=== PATIENT | male | born 1955 | race Caucasian/White ===

== ENCOUNTER 2018-06-22 09:22 | Observation (INO) ==
[2018-06-22] MEDS ORDERED: 0.9 % Sodium Chloride 1,000 ML ONE (09:47)
[2018-06-22] MEDS ORDERED: 0.9 % Sodium Chloride 1,000 ML IVC ONE (09:49)
[2018-06-22 10:03] LABS: Basophils % 0.1 %; Eosinophils # 0.2 K/mcL (0.0-0.6); Eosinophils % 2.6 %; Hemoglobin 16.1 g/dL (12.9-16.9); Immature Granulocytes % 0.3 % (0-4); Lymphocytes # 1.9 K/mcL (0.6-4.6); Lymphocytes % 23.9 %; Mean Corpuscular HGB Conc 34.3 g/dL (31.6-35.5); Mean Corpuscular Hemoglobin 31.2 pg (28.0-33.3); Mean Corpuscular Volume 91.1 fL (83.0-100.0); Mean Platelet Volume 10.1 fL (9.4-12.4); Monocytes # 0.7 K/mcL (0.0-1.3); Monocytes % 8.9 %; Platelet Count 203 K/mcL (140-400); Red Blood Count 5.16 M/mcL (4.19-5.50); Red Cell Distribution Width 12.4 % (11.5-14.5); Segmented Neutrophils % 64.2 %
--- NOTE | 2018-06-22 10:03 | Emergency Department Note ---
Disposition Clinical Impression: Atrial flutter with rapid ventricular response, New onset atrial flutter Disposition: Admitted As Inpatient Condition: Good General Adult HPI - General Chief complaint: ED Recheck/Abnormal Lab/Rx Stated complaint: sent from Dr Angeles Time Seen by Provider: 06/22/18 09:31 Source: patient Limitations: no limitations Nursing Notes Reviewed: Yes Vital Signs Reviewed: Yes - History of Present Illness HPI Narrative: Patient presents today from PCPs office where he was there for a checkup and found to have a heart rate of 160. Patient referred to the emergency department for concern for SVT. Patient states that 10 days ago he had chest pain and diaphoresis that self resolved. Patient states that he did not think much about it as a result prior to him getting to the emergency department. The patient has not had any other symptoms since then he continues planes of a "chest cold where he has had a nonproductive cough. Denies shortness of breath. Pain Scale: 0 - Related Data Home Medications Medication Instructions Recorded Confirmed Albuterol Sulfate [Ventolin Hfa] 2 puff IH Q6H PRN 06/22/18 06/22/18 Aspirin [Adult Aspirin] 81 mg PO DAILY 06/22/18 06/22/18 Budesonide/Formoterol 160/4.5 2 puff IH BIDR 06/22/18 06/22/18 [Symbicort 160/4.5] Citalopram [CeleXA] 20 mg PO DAILY 06/22/18 06/22/18 Cyclobenzaprine [Flexeril] 10 mg PO TID 06/22/18 06/22/18 Ipratropium/Albuterol Neb [Duoneb] 3 ml IH Q6HR 06/22/18 06/22/18 Lisinopril-HCTZ 10-12.5 [Prinzide 1 tab PO DAILY 06/22/18 06/22/18 10-12.5] Loratadine [Allergy Relief] 10 mg PO DAILY 06/22/18 06/22/18 Magnesium l-Lactate [Mag-Tab Sr] 84 mg PO DAILY 06/22/18 06/22/18 Multivit-Min/FA/Lycopen/Lutein [A 1 tab PO DAILY 06/22/18 06/22/18 Thru Z Select Multivit Tab] Omeprazole [PriLOSEC] 20 mg PO DAILY 06/22/18 06/22/18 RX: Metoprolol [Lopressor] 25 mg PO BID 06/22/18 06/22/18 RX: Primidone [Mysoline] 50 mg PO BID 06/22/18 06/22/18 Rosuvastatin Calcium [Crestor] 10 mg PO DAILY 06/22/18 06/22/18 Tiotropium [place] [Spiriva 2 puff IH DAILY 06/22/18 06/22/18 Respimat] Allergies Allergy/AdvReac Type Severity Reaction Status Date / Time topiramate [From Topamax] Allergy UE/LE Verified 06/22/18 09:27 swelling All systems ED: reviewed and negative except as stated. Review of Systems: As Per HPI Constitutional: Denies: fever, chills ENT ED: Reports: congestion Cardiovascular: Denies: chest pain, palpitations, dyspnea on exertion Respiratory: Denies: cough, dyspnea Gastrointestinal: Denies: abdominal pain, nausea, vomiting Genitourinary: Denies: urgency, dysuria Musculoskeletal: Denies: back pain, neck pain Integumentary: Denies: rash, abrasion Neurological: Denies: headache Psychiatric: Reports: anxiety Endocrine: Denies: fatigue Past Medical History - Past Medical History Medical history: Reports: myocardial infarction, seizures Psychiatric history: Reports: anxiety - Social History Smoking Status: Current some day smoker Smokeless Tobacco Status: No Alcohol use: Reports: none Drug use: Reports: none Physical Exam General: Well appearing, nontoxic, no acute distress Head: Normocephalic Atraumatic Eyes: PERRL, EOMI ENT: Airway patent, no stridor Neck: supple, no meningismus Chest: Lungs clear to auscultation bilateral Cardiac: Regular rhythm, tachycardic Abdomen: soft, nontender, nondistended; no guarding, rebound, or tenderness to percussion Musculoskeletal: Calves symmetric, nontender, no palpable cord Skin: No rash, normal skin tone Neuro: Awake alert and answers all questions appropriately. No focal deficit, CN 2-12 symmetric and intact - General Limitations: no limitations General appearance: alert Course Course Narrative: Patient with symptoms 10 days ago but now with asymptomatic heart rate of 160s concern for SVT. Given the QRS complex of 1338 is considered a wide-complex but less likely to be V. tach given morphology. The patient was initially reluctant to let us get an IV. He is reluctant to significant medical intervention at this time. We will try Cardizem rather than adenosine given the feelings associated with adenosine. - Reevaluation(s) Reevaluation #1: Initial Cardizem bolus given without any change in the heart rate. Patient was given adenosine both 6 with no change and then 12 with slowing of the heart rate to find atrial flutter. Patient continued on Cardizem. Once the drip was hung, repeat Cardizem bolus was ordered. Reevaluation #2: Patient's heart rate improved to 107. Atrial flutter. Patient be admitted for further workup, treatment, evaluation. Reevaluation #3: We discussed with cardiology secondary to patient's increase in heart rate after initial control. Recommends heparin drip and Lopressor if needed. - Consultations Consultation #1: Discussed with hospitalist. Patient accepted for admission. Consultation #2: Discussed with cardiology, Initial control of heart rate with relapse of heart rate to be 160s despite max dose Cardizem. Recommends anticoagulation and Lopressor. Vital Signs Temperature 97.9 F 06/22/18 09:24 Pulse Rate 163 06/22/18 09:24 Respiratory Rate 16 06/22/18 09:24 Blood Pressure 128/88 06/22/18 09:24 O2 Sat by Pulse Oximetry 97 06/22/18 09:24 Temperature 97.5 F L 06/22/18 16:29 Pulse Rate 125 06/22/18 16:29 Respiratory Rate 18 06/22/18 16:34 Blood Pressure 140/94 06/22/18 16:29 O2 Sat by Pulse Oximetry 98 06/22/18 16:34 Oxygen Delivery Oxygen Delivery Nasal Cannula Medical Decision Making - Medical Records Medical records reviewed: Yes I reviewed the patient's medical records. - Lab Data Lab results reviewed: Yes I reviewed the patient's lab results. Result diagrams: 06/22/18 09:46 06/22/18 09:46 Lab Results 06/22/18 06/22/18 06/22/18 Range/Units 09:46 09:46 09:46 WBC 7.8 (4.3-11.1) K/mcL RBC 5.16 (4.19-5.50) M/mcL Hgb 16.1 (12.9-16.9) g/dL Hct 47.0 (37.5-50.1) % MCV 91.1 (83.0-100.0) fL MCH 31.2 (28.0-33.3) pg MCHC 34.3 (31.6-35.5) g/dL RDW 12.4 (11.5-14.5) % Plt Count 203 (140-400) K/mcL MPV 10.1 (9.4-12.4) fL Immature Gran % 0.3 (0-4) % Seg Neutrophils % 64.2 % Lymphocytes % 23.9 % Monocytes % 8.9 % Eosinophils % 2.6 % Basophils % 0.1 % Neutrophils # 5.0 (1.6-8.9) K/mcL Lymphocytes # 1.9 (0.6-4.6) K/mcL Monocytes # 0.7 (0.0-1.3) K/mcL Eosinophils # 0.2 (0.0-0.6) K/mcL Basophils # 0.0 (0.0-0.2) K/mcL PT 11.4 (9.4-12.1) Seconds INR 1.0 APTT 29.2 (26.0-36.0) Seconds Sodium 141 (136-145) mEq/L Potassium 4.2 (3.5-5.1) mEq/L Chloride 106 (98-107) mEq/L Carbon Dioxide 25 (23-29) mEq/L BUN 14 (8-23) mg/dL Creatinine 1.12 (0.70-1.30) mg/dL Est GFR ( Amer) > 60 (> 60) Est GFR (Non-Af Amer) > 60 (> 60) BUN/Creatinine Ratio 13 (6-26) Glucose 150 H (70-105) mg/dL Calculated Osmolality 295 (280-300) Calcium 9.3 (8.6-10.3) mg/dL Magnesium 1.9 (1.6-2.6) mg/dL Troponin I 0.03 (< 0.04) ng/mL B-Natriuretic Peptide (Less than 100) pg/mL TSH 3.786 (0.340-5.600) mcIU/mL 06/22/18 Range/Units 09:46 WBC (4.3-11.1) K/mcL RBC (4.19-5.50) M/mcL Hgb (12.9-16.9) g/dL Hct (37.5-50.1) % MCV (83.0-100.0) fL MCH (28.0-33.3) pg MCHC (31.6-35.5) g/dL RDW (11.5-14.5) % Plt Count (140-400) K/mcL MPV (9.4-12.4) fL Immature Gran % (0-4) % Seg Neutrophils % % Lymphocytes % % Monocytes % % Eosinophils % % Basophils % % Neutrophils # (1.6-8.9) K/mcL Lymphocytes # (0.6-4.6) K/mcL Monocytes # (0.0-1.3) K/mcL Eosinophils # (0.0-0.6) K/mcL Basophils # (0.0-0.2) K/mcL PT (9.4-12.1) Seconds INR APTT (26.0-36.0) Seconds Sodium (136-145) mEq/L Potassium (3.5-5.1) mEq/L Chloride (98-107) mEq/L Carbon Dioxide (23-29) mEq/L BUN (8-23) mg/dL Creatinine (0.70-1.30) mg/dL Est GFR ( Amer) (> 60) Est GFR (Non-Af Amer) (> 60) BUN/Creatinine Ratio (6-26) Glucose (70-105) mg/dL Calculated Osmolality (280-300) Calcium (8.6-10.3) mg/dL Magnesium (1.6-2.6) mg/dL Troponin I (< 0.04) ng/mL B-Natriuretic Peptide 106 H (Less than 100) pg/mL TSH (0.340-5.600) mcIU/mL - Radiology Data Radiology results reviewed: Yes I reviewed the patient's radiology results. - EKG Data EKG #1 EKG attestation: Yes I reviewed and interpreted this EKG. EKG results narrative: EKG shows tachycardia at 160, DE 95, QRS 133, QTC [address] elevations or depressions. Most consistent with SVT. Critical Care Time Critical Care Time: Yes Total Critical Care Time: 40 Attestation: Critical care time was exclusive of separately billable procedures and treating other patients. Critical care was necessary to treat or prevent imminent or life-threatening deterioration. Critical care was time spent personally by me on the following activities: development of treatment plan with patient and/or surrogate as well as nursing, discussions with consultants, evaluation of patient's response to treatment, examination of patient, obtaining history from patient or surrogate, ordering and performing treatments and interventions, ordering and review of laboratory studies, ordering and review of radiographic studies, pulse oximetry and re-evaluation of patient's condition.
[2018-06-22] MEDS ORDERED: *HR* Adenosine 6 MG/2 ML SYRINGE IVP ONE ×2 (10:23)
[2018-06-22 10:29] LABS: Troponin I 0.03 ng/mL (< 0.04)
[2018-06-22 10:37] LABS: BUN/Creatinine Ratio 13 (6-26); Blood Urea Nitrogen 14 mg/dL (8-23); Calcium 9.3 mg/dL (8.6-10.3); Carbon Dioxide 25 mEq/L (23-29); Chloride 106 mEq/L (98-107); Glucose 150 mg/dL (70-105); Magnesium 1.9 mg/dL (1.6-2.6); Osmolality,Calculated 295 (280-300); Potassium 4.2 mEq/L (3.5-5.1); Prothrombin Time 11.4 Seconds (9.4-12.1); Sodium 141 mEq/L (136-145); eGFR For Non-African Americans > 60 (> 60)
[2018-06-22 10:40] LABS: Activated Partial Thrombo Time 29.2 Seconds (26.0-36.0)
[2018-06-22 10:42] LABS: Thyroid Stimulating Hormone 3.786 mcIU/mL (0.340-5.600)
[2018-06-22] MEDS: *HR* Adenosine 6 MG/2 ML VIAL IVP ONE ×2 (10:59→11:00)
[2018-06-22] MEDS ORDERED: *HR* Metoprolol 5 MG/5 ML VIAL IVP STA (12:17)
[2018-06-22] MEDS ORDERED: *HR* Heparin 5,000 UNIT/ML VIAL IVP ONE (12:17)
[2018-06-22] MEDS ORDERED: *HR* Heparin 5,000 UNIT/ML VIAL IVP PRN ×2 (12:17)
[2018-06-22] MEDS ORDERED: Acetaminophen 325 MG TABLET PO PRN (12:24)
[2018-06-22] MEDS ORDERED: Naloxone 0.4 MG/ML INJ IVP PRN (12:24)
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
[2018-06-22] MEDS ORDERED: *HR* Midazolam HCl 2 MG/2 ML VIAL IVP ONE (14:47)
[2018-06-22] MEDS: Heparin 25,000 UNIT/500 ML D5W 25,000 UNIT/500 ML BAG IVC SCH (15:56)
[2018-06-22] MEDS ORDERED: Ipratropium/Albuterol Neb 3 ML IH SCH (16:00)
[2018-06-22 16:14] LABS: Chol/HDL Ratio 6.4 (0-4.9); Magnesium 1.8 mg/dL (1.6-2.6); Phosphorous 3.3 mg/dL (2.7-4.5)
[2018-06-22] MEDS ORDERED: *HR* Metoprolol 5 MG/5 ML VIAL IVP PRN ×2 (17:49→20:00)
[2018-06-22] MEDS ORDERED: *HR* Metoprolol 5 MG/5 ML VIAL IVP ONE (17:51)
[2018-06-22] MEDS: Doxycycline 100 MG CAPSULE PO SCH (19:40)
[2018-06-22] MEDS ORDERED: Ipratropium/Albuterol Neb 3 ML IH PRN (20:39)
[2018-06-22] MEDS: Budesonide/Formoterol 160/4.5 1 PUFF INH IH SCH (21:34)
[2018-06-23 05:47] LABS: Basophils % 0.1 %; Eosinophils # 0.3 K/mcL (0.0-0.6); Eosinophils % 3.7 %; Hematocrit 41.2 % (37.5-50.1); Immature Granulocytes % 0.4 % (0-4); Lymphocytes # 2.5 K/mcL (0.6-4.6); Lymphocytes % 31.1 %; Mean Corpuscular HGB Conc 33.5 g/dL (31.6-35.5); Mean Corpuscular Hemoglobin 30.6 pg (28.0-33.3); Mean Corpuscular Volume 91.4 fL (83.0-100.0); Mean Platelet Volume 10.3 fL (9.4-12.4); Monocytes # 0.7 K/mcL (0.0-1.3); Monocytes % 8.8 %; Neutrophils # 4.4 K/mcL (1.6-8.9); Platelet Count 180 K/mcL (140-400); Red Blood Count 4.51 M/mcL (4.19-5.50); Red Cell Distribution Width 12.7 % (11.5-14.5); Segmented Neutrophils % 55.9 %
[2018-06-23 06:01] LABS: Hemoglobin 13.8 g/dL (12.9-16.9)
[2018-06-23 06:03] LABS: Alanine Aminotransferase 27 Units/L (7-52); Albumin 3.7 g/dL (3.5-5.7); Albumin/Globulin Ratio 1.7 (1.1-2.2); Alkaline Phosphatase 54 Units/L (34-104); Aspartate Amino Transferase 18 Units/L (13-39); BUN/Creatinine Ratio 14 (6-26); Bilirubin,Total 0.5 mg/dL (0.3-1.0); Blood Urea Nitrogen 15 mg/dL (8-23); Calcium 8.5 mg/dL (8.6-10.3); Carbon Dioxide 27 mEq/L (23-29); Chloride 107 mEq/L (98-107); Globulin 2.2 g/dL (2.4-3.5); Glucose 126 mg/dL (70-105); Osmolality,Calculated 292 (280-300); Sodium 140 mEq/L (136-145); Total Protein 5.9 g/dL (6.4-8.9); eGFR For Non-African Americans > 60 (> 60)
--- NOTE | 2018-06-23 08:41 | Electrocardiograph Report ---
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
--- NOTE | 2018-06-23 08:44 | Electrocardiograph Report ---
[facility] Test Date: 2018-06-22 Pat Name: Keny Hansen Department: EXAM4 Room: 2NE30 Gender: M Sewer Line Repairer: : 1955 Requested By: Edd Bardales Order Number: [id number] Reading MD: Scott Culp Measurements Intervals [place] Rate: 158 P: 217 [place]: 90 QRS: -81 QRSD: 92 T: -88 QT: 358 QTc: 581 Interpretive Statements Sinus or ectopic atrial tachycardia Left anterior fascicular block RSR' in V1 or V2, right VCD or RVH Abnormal T, consider ischemia, diffuse leads Prolonged QT interval Baseline wander in lead(s) V5 Electronically Signed On 06-23-2018 8:43:01 EST by Scott Culp
--- NOTE | 2018-06-23 09:05 | Cardiology Consult Note ---
<Salty Mehta - Last Filed: 06/23/18 10:38> Date of Encounter: 06/23/18 Time of Encounter: 08:20 Assessment and Plan (1) Atrial flutter with rapid ventricular response Current Visit: Yes Status: Acute -Episode of asymptomatic A flutter-RVR with HR in 160's that did not respond to adenosine x2 but returned to baseline NSR after diltiazem infusion -HR and BP stable now on only home metoprolol. Diltiazem infusion stopped. -Most recent HR 77, BP 108/78 -ECHO 06/23/18 EF 50%, mild concentric LV hypertrophy, normal LV diastolic function, normal RV structure and function -[id number] 2 and recommend qc analyst anticoagulation with DOAC -Will need outpatient stress test and followup with cardiology Discussion w patient/family: The assessment and plan as outlined above was discussed with the patient and/or family members who expressed understanding and agreement. All questions were answered. Thank you for involving us in the care of your patient. Please call with any questions. History of Present Illness Consult date: 06/23/18 Requesting physician: Mohan Chirinos Consult reason: A flutter-RVR Chief complaint: Chest pain History of present illness: Mr. Hansen is a 63 year old male with pmh significant for [place] s/p 3 stents in 2003, HTN, COPD, anxiety, and current smoker who cardiology is consulted for A flutter-RVR. 2 weeks ago he had episode of substernal chest pain, diaphoresis and palpitations that lasted for 15-20 min and resolved spontaneously and was not evaluated after. He went to PCP yesterday and was found to have HR 163 and was sent to the ED. Within the ED he was found to be in A flutter, HR 161 and was given 2 doses adenosine without change and started on diltiazem infusion due to sustained tachycardia. Rate improved overnight and infusion stopped. He denies any blurry vision, diplopia, dizziness/lightheadedness, chest pain, dyspnea, palpitations, diaphoresis or feeling of impending syncope yesterday or today. He has no symptoms or complaints today. Past Med Surg Social Fam HX - Past Medical History Medical history: myocardial infarction, seizures Psychiatric history: anxiety - Past Surgical History Additional surgical history: 3 stents - Social History Smoking Status: Current some day smoker Packs per day: less than 0.5 pack/day Smokeless Tobacco Status: No Alcohol use: none Drug use: none - Family History Father Living Status: Still Living Hx Family Endocrine Disorder: Yes (DM) Medications and Allergies Albuterol Sulfate [Ventolin Hfa] 2 puff IH Q6H PRN 06/22/18 [History] Aspirin [Adult Aspirin] 81 mg PO DAILY 06/22/18 [History] Budesonide/Formoterol 160/4.5 [Symbicort 160/4.5] 2 puff IH BIDR 06/22/18 [History] Citalopram [CeleXA] 20 mg PO DAILY 06/22/18 [History] Cyclobenzaprine [Flexeril] 10 mg PO TID 06/22/18 [History] Ipratropium/Albuterol Neb [Duoneb] 3 ml IH Q6HR 06/22/18 [History] Lisinopril-HCTZ 10-12.5 [Prinzide 10-12.5] 1 tab PO DAILY 06/22/18 [History] Loratadine [Allergy Relief] 10 mg PO DAILY 06/22/18 [History] Magnesium l-Lactate [Mag-Tab Sr] 84 mg PO DAILY 06/22/18 [History] Multivit-Min/FA/Lycopen/Lutein [A Thru Z Select Multivit Tab] 1 tab PO DAILY 06/22/18 [History] Omeprazole [PriLOSEC] 20 mg PO DAILY 06/22/18 [History] RX: Metoprolol [Lopressor] 25 mg PO BID 06/22/18 [History] RX: Primidone [Mysoline] 50 mg PO BID 06/22/18 [History] Rosuvastatin Calcium [Crestor] 10 mg PO DAILY 06/22/18 [History] Tiotropium [place] [Spiriva Respimat] 2 puff IH DAILY 06/22/18 [History] Apixaban [Eliquis] 5 mg PO BID #60 tablet 06/23/18 [Rx] Allergy/AdvReac Type Severity Reaction Status Date / Time topiramate [From Topamax] Allergy UE/LE Verified 06/22/18 09:27 swelling All Systems Review: The remainder of the systems were reviewed and are negative Physical Examination Vital Signs, Last 4 Hours Temp Pulse Resp BP 06/23/18 08:00 98.6 F 106 15 132/88 General: Conversant, No Apparent Distress HEENT: Atraumatic, Normocephaly, Mucus Membranes Moist Neck: No JVD Cardiac: Reg Rate and Rhythm, Normal S1 and S2, No Murmur Lungs: Normal Breath Sounds, No Wheeze, Rales, Rhonchi Neuro: Alert and responsive, No focal deficits noted Abdomen: Soft, Non-Tender Skin: No rashes noted on visualized skin Musculoskeletal: No Chest Wall Tenderness Extremities: No Clubbing, No Cyanosis, No Edema, Normal Pulses Results 06/23/18 05:30 06/23/18 05:30 Lab Results 06/22/18 06/22/18 06/22/18 09:46 09:46 09:46 WBC 7.8 Hgb 16.1 Hct 47.0 Plt Count 203 INR 1.0 APTT 29.2 Sodium 141 Potassium 4.2 Chloride 106 Carbon Dioxide 25 BUN 14 Creatinine 1.12 Glucose 150 H Calcium 9.3 Magnesium 1.9 Total Bilirubin AST ALT Alkaline Phosphatase Troponin I 0.03 B-Natriuretic Peptide TSH 3.786 06/22/18 06/22/18 06/23/18 09:46 15:40 05:30 WBC 7.9 Hgb 13.8 D Hct 41.2 Plt Count 180 INR APTT Sodium Potassium Chloride Carbon Dioxide BUN Creatinine Glucose Calcium Magnesium 1.8 Total Bilirubin AST ALT Alkaline Phosphatase Troponin I B-Natriuretic Peptide 106 H TSH 06/23/18 05:30 WBC Hgb Hct Plt Count INR APTT Sodium 140 Potassium 4.0 Chloride 107 Carbon Dioxide 27 BUN 15 Creatinine 1.06 Glucose 126 H Calcium 8.5 L Magnesium Total Bilirubin 0.5 AST 18 ALT 27 Alkaline Phosphatase 54 Troponin I B-Natriuretic Peptide TSH Consult Discharge Plan - Plan Referrals: Markus Angeles MD [Primary Care Provider] - 07/02/18 9:45 am Prescriptions: Apixaban [Eliquis] 5 mg PO BID #60 tablet <Jamie Pierce - Last Filed: 06/23/18 16:12> Date of Encounter: 06/23/18 - Attending Attestation I examined this patient and my medical decision-making was reviewed with the Resident Physician. I agree with the documented findings, disposition and treatment plan as described except to the extent set forth below. 63 YOM with hx new onset atrial flutter with one episode of chest pain x 1 week. Currently NSR at 90 bpm, start po cardiazem and obtain stress test in am. Likely pt will be on NOAC upon DC Assessment and Plan Discussion w patient/family: The assessment and plan as outlined above was discussed with the patient and/or family members who expressed understanding and agreement. All questions were answered. Thank you for involving us in the care of your patient. Please call with any questions. History of Present Illness History of present illness: Mr. Hansen is a 63 year old male All Systems Review: The remainder of the systems were reviewed and are negative Physical Examination Vital Signs, Last 4 Hours Temp Pulse Resp BP Pulse Ox 06/23/18 15:37 97.6 F 92 18 134/92 94 Results 06/23/18 05:30 06/23/18 05:30 Lab Results 06/22/18 06/23/18 06/23/18 15:40 05:30 05:30 WBC 7.9 Hgb 13.8 D Hct 41.2 Plt Count 180 Sodium 140 Potassium 4.0 Chloride 107 Carbon Dioxide 27 BUN 15 Creatinine 1.06 Glucose 126 H Calcium 8.5 L Magnesium 1.8 Total Bilirubin 0.5 AST 18 ALT 27 Alkaline Phosphatase 54 Troponin I 06/23/18 12:55 WBC Hgb Hct Plt Count Sodium Potassium Chloride Carbon Dioxide BUN Creatinine Glucose Calcium Magnesium Total Bilirubin AST ALT Alkaline Phosphatase Troponin I 0.03
[2018-06-23] MEDS: Heparin 25,000 UNIT/500 ML D5W 25,000 UNIT/500 ML BAG IVC SCH (09:51)
[2018-06-23] MEDS: Aspirin Enteric Coated 81 MG Tablet PO SCH (09:52)
[2018-06-23] MEDS: Doxycycline 100 MG CAPSULE PO SCH ×2 (09:52→21:24)
[2018-06-23] MEDS: Budesonide/Formoterol 160/4.5 1 PUFF INH IH SCH ×2 (10:35→19:52)
[2018-06-23] MEDS: Diltiazem CD (24hr) 120 MG CAPSULE PO SCH (12:51)
--- NOTE | 2018-06-23 16:07 | Internal Med Progress Note ---
Hospitalist Progress Note - Encounter Date of Encounter: 06/23/18 Time of Encounter: 08:00 - Subjective Interval History: She was seen and examined at bedside. He has no complaints, no overnight events. Tolerating by mouth diet. Denies fever, chills, nausea, vomiting, diarrhea, chest pain, shortness of breath, palpitations - Exam Vitals: Temp Pulse Resp BP Pulse Ox 97.6 F 92 18 134/92 94 06/23/18 15:37 06/23/18 15:37 06/23/18 15:37 06/23/18 15:37 06/23/18 15:37 Exam: General: Patient is alert, oriented, no acute distress, obese Head: atraumatic, normocephalic, Eye: normal appearance, PERRL, no scleral icterus, no conjunctival injection ENT: mucous membranes moist, normal external ear exam Neck: normal inspection, trachea midline, full ROM, no carotid bruits Chest: normal inspection, symmetric chest rise Respiratory: Good respiratory effort. Bilateral breath sounds are clear without wheezing, crackles, or rhonchi. Cardiovascular: Regular rate and rhythm. s1 and s2 No clicks, rubs, gallops, or murmors. Abdomen: Bowel sounds present normoactive x-4 quadrants. Abdomen is soft, nondistended. no Epigastric tenderness. No guarding or rebound. No organomegaly noted, obese musculoskeletal: Spontaneously moving all extremities. no edema, no calf tenderness Skin: warm, dry, intact. Neuro: Alert and oriented x4. No focal deficit Psych: Patient's affect is normal - Assessment and Plan (1) New onset atrial flutter Current Visit: Yes Status: Acute Assessment and Plan: [id number] - currently on heparin drip, will consider sending him home on [place] checked $0 ECHO 06/23/18 EF 50%, mild concentric LV hypertrophy, normal LV diastolic function, normal RV structure and function Cardizem drip was discontinued and he is now on metoprolol- heart rate controlled for stress test in the morning Cardiology on board recommendations appreciated (2) COPD (chronic obstructive pulmonary disease) Current Visit: Yes Status: Acute Assessment and Plan: Continue home medications Not an exacerbation (3) Tobacco abuse Current Visit: Yes Status: Acute Assessment and Plan: Was counseled extensively (4) Obesity (BMI 30.0-34.9) Current Visit: Yes Status: Acute Assessment and Plan: Was counseled on diet and nutrition (5) DVT prophylaxis Current Visit: Yes Status: Acute Assessment and Plan: On heparin drip - Time Spent with Patient Total time spent is greater than 50% in coordination of care (as documented) at patient's floor/unit and/or counseling patient: Internal Medicine: Result - Labs CBC & Chem 7: 06/23/18 05:30 06/23/18 05:30 Labs: Short CBC 06/23/18 Range/Units 05:30 WBC 7.9 (4.3-11.1) K/mcL Hgb 13.8 D (12.9-16.9) g/dL Hct 41.2 (37.5-50.1) % Plt Count 180 (140-400) K/mcL Neutrophils # 4.4 (1.6-8.9) K/mcL BMP 06/23/18 05:30 Sodium 140 Potassium 4.0 Chloride 107 Carbon Dioxide 27 BUN 15 Creatinine 1.06 Glucose 126 H Calcium 8.5 L Cardiac Enzymes 06/23/18 Range/Units 12:55 Troponin I 0.03 (< 0.04) ng/mL Liver Function 06/23/18 Range/Units 05:30 Total Bilirubin 0.5 (0.3-1.0) mg/dL AST 18 (13-39) Units/L ALT 27 (7-52) Units/L Alkaline Phosphatase 54 (34-104) Units/L Albumin 3.7 (3.5-5.7) g/dL - ABG Interpretation ABG results: PT/INR, D-dimer PT 11.4 Seconds (9.4-12.1) 06/22/18 09:46 - Impressions Impressions Echocardiogram 06/23/18 00:00 Impressions: LVEF 50%. Normal left ventricular diastolic function. Mild concentric left ventricular hypertrophy. Normal right ventricular structure and function. Mildly calcified aortic valve leaflets. Trace mitral regurgitation. No evidence of pulmonary hypertension. Left Ventricular Wall Motion: Rest Echo Findings All wall segments showed normal motion. Findings: Study Quality * Technically adequate exam. ECG Findings * Normal sinus rhythm. Left Ventricle * LVEF 50%. * Normal left ventricular diastolic function. * Mild concentric left ventricular hypertrophy. Right Ventricle * Normal right ventricular structure and function. Left Atrium * Normal left atrial size. Right Atrium * Normal right atrial size. Interatrial Septum * No evidence of PFO by color Doppler. Aortic Valve * Trileaflet aortic valve. * No aortic regurgitation. * No aortic stenosis. * Mildly calcified aortic valve leaflets. Mitral Valve * No mitral stenosis. * Trace mitral regurgitation. Tricuspid Valve * Normal tricuspid valve structure. * Trace tricuspid regurgitation. * No tricuspid stenosis. * No evidence of pulmonary hypertension. Pulmonic Valve * Pulmonic valve is not well visualized. Aorta * Normally sized aortic root. Pericardium * The pericardium appears normal. Pulmonary Artery * Normal visualized portions of the main pulmonary artery. Consult Discharge Plan - Plan Referrals: Markus Angeles MD [Primary Care Provider] - 07/02/18 9:45 am Prescriptions: Apixaban [Eliquis] 5 mg PO BID #60 tablet (2) COPD (chronic obstructive pulmonary disease) Qualifiers: COPD type: unspecified COPD Qualified Code(s): J44.9 - Chronic obstructive pulmonary disease, unspecified
--- NOTE | 2018-06-23 17:27 | Electrocardiograph Report ---
[address] [address] Test Date: 2018-06-22 Pat Name: Keny Hansen Department: EXAM4 Room: 2N0 Gender: M Knocker Off: : 1955 Requested By: Quentin Benavidez Order Number: [id number] Reading MD: Jose Dyer Measurements Intervals [place] Rate: 153 P: [place]: QRS: -74 QRSD: 93 T: QT: 257 QTc: 410 Interpretive Statements Atrial flutter with varied AV block, Left anterior fascicular block Abnormal R-wave progression, late transition Borderline T wave abnormalities Electronically Signed On 06-23-2018 17:25:57 EST by Jose Dyer
--- NOTE | 2018-06-23 17:57 | Electrocardiograph Report ---
[address] [address] Test Date: 2018-06-22 Pat Name: Keny Hansen Department: 111 Room: 2NE30 Gender: M A Operator: [id number] : 1955 Requested By: Mohan Chirinos Order Number: [id number] Reading MD: Jose Dyer Measurements Intervals [place] Rate: 74 P: 57 [place]: 167 QRS: -36 QRSD: 100 T: 20 QT: 364 QTc: 392 Interpretive Statements SINUS RHYTHM POSSIBLE LEFT ATRIAL ENLARGEMENT MARKED LEFT AXIS DEVIATION INCOMPLETE RIGHT BUNDLE BRANCH BLOCK NONSPECIFIC T-WAVE ABNORMALITY Electronically Signed On 06-23-2018 17:55:48 EST by Jose Dyer
[2018-06-24] MEDS: Heparin 25,000 UNIT/500 ML D5W 25,000 UNIT/500 ML BAG IVC SCH (02:41)
[2018-06-24] MEDS ORDERED: Regadenoson 0.4 MG/5 ML SYRINGE IVP ONE (06:12)
[2018-06-24] MEDS: Budesonide/Formoterol 160/4.5 1 PUFF INH IH SCH ×2 (10:32→21:20)
[2018-06-24] MEDS: Diltiazem CD (24hr) 120 MG CAPSULE PO SCH (11:10)
[2018-06-24] MEDS: Doxycycline 100 MG CAPSULE PO SCH ×2 (11:10→21:22)
[2018-06-24] MEDS: Aspirin Enteric Coated 81 MG Tablet PO SCH (11:10)
--- NOTE | 2018-06-24 12:11 | Internal Med Progress Note ---
Hospitalist Progress Note - Encounter Date of Encounter: 06/24/18 Time of Encounter: 09:00 - Subjective Interval History: She was seen and examined at bedside. He has no complaints, no overnight events. S/p stress test- he understand that he is to remain NPO for possibility of having other procedure depending on results of stress test. Denies fever, chills, nausea, vomiting, diarrhea, chest pain, shortness of breath, palpitations - Exam Vitals: Temp Pulse Resp BP Pulse Ox 97.4 F L 85 15 140/99 95 06/24/18 09:35 06/24/18 09:35 06/24/18 09:35 06/24/18 09:35 06/24/18 09:35 Exam: General: Patient is alert, oriented, no acute distress, obese Head: atraumatic, normocephalic, Eye: normal appearance, PERRL, no scleral icterus, no conjunctival injection ENT: mucous membranes moist, normal external ear exam Neck: normal inspection, trachea midline, full ROM, no carotid bruits Chest: normal inspection, symmetric chest rise Respiratory: Good respiratory effort. Bilateral breath sounds are clear without wheezing, crackles, or rhonchi. Cardiovascular: Regular rate and rhythm. s1 and s2 No clicks, rubs, gallops, or murmors. Abdomen: Bowel sounds present normoactive x-4 quadrants. Abdomen is soft, nondistended. no Epigastric tenderness. No guarding or rebound. No organomegaly noted, obese musculoskeletal: Spontaneously moving all extremities. no edema, no calf tenderness Skin: warm, dry, intact. Neuro: Alert and oriented x4. No focal deficit Psych: Patient's affect is normal - Assessment and Plan (1) New onset atrial flutter Current Visit: Yes Status: Acute Assessment and Plan: [id number] - currently on heparin drip, will consider sending him home on [place] checked $0 ECHO 06/23/18 EF 50%, mild concentric LV hypertrophy, normal LV diastolic function, normal RV structure and function Cardizem drip was discontinued and he is now on metoprolol- heart rate controlled stress test - positive interventional cardiology contacted will follow recs continue ASA, lipitor, BB stress test: Mild to moderate inferior/inferolateral ischemia present on perfusion study (reversible mid-basal inferior/inferolateral perfusion defect of small size and moderate intensity, SDS = 4) . No infarct on perfusion study. Stress LVEF 55 %. Pharmacologic stress ECG non-diagnostic for ischemia. Ordering physician notified via [employer]. (2) COPD (chronic obstructive pulmonary disease) Current Visit: Yes Status: Acute Assessment and Plan: Continue home medications Not an exacerbation (3) Tobacco abuse Current Visit: Yes Status: Acute Assessment and Plan: Was counseled extensively (4) Obesity (BMI 30.0-34.9) Current Visit: Yes Status: Acute Assessment and Plan: Was counseled on diet and nutrition (5) DVT prophylaxis Current Visit: Yes Status: Acute Assessment and Plan: On heparin drip - Time Spent with Patient Total time spent is greater than 50% in coordination of care (as documented) at patient's floor/unit and/or counseling patient: Internal Medicine: Result - Labs CBC & Chem 7: 06/23/18 05:30 06/23/18 05:30 Labs: Cardiac Enzymes 06/23/18 Range/Units 12:55 Troponin I 0.03 (< 0.04) ng/mL - ABG Interpretation ABG results: PT/INR, D-dimer PT 11.4 Seconds (9.4-12.1) 06/22/18 09:46 Consult Discharge Plan - Plan Referrals: Markus Angeles MD [Primary Care Provider] - 07/02/18 9:45 am Prescriptions: Apixaban [Eliquis] 5 mg PO BID #60 tablet (2) COPD (chronic obstructive pulmonary disease) Qualifiers: COPD type: unspecified COPD Qualified Code(s): J44.9 - Chronic obstructive pulmonary disease, unspecified
--- NOTE | 2018-06-24 14:06 | Pre-Sedation Evaluation ---
Pre-sedation evaluation - Pre-sedation checklist Date of procedure: 06/24/18 Procedure: [facility] Recent Vitals: Last Vital Signs Temp 97.4 F L 06/24/18 09:35 Pulse 85 06/24/18 09:35 Resp 15 06/24/18 09:35 BP 140/99 06/24/18 09:35 Pulse Ox 95 06/24/18 09:35 H&P (including ROS) documented in medical record: Yes Previous reaction to sedatives/anesthetics: No Dietary Status: NPO after Midnight Airway Assessment: Patient can open mouth completely, TMJ function normal ASA Classification *see protocol: CLASS II-Mild systemic disease Plan of Care: Pt appropriate candidate for procedure/moderate/conscious sedation, Risks/benefits of procedure/sedation discussed w/ patient/family Cardiac Registry (Cardio Only) - Functional Capacity Functional Capacity: >=4 METS with symptoms - Clincal Frailty Scale Clinical Frailty Scale: Managing Well
--- NOTE | 2018-06-24 14:34 | Event Note ---
Date of Encounter: 06/24/18 Time of Encounter: 14:31 - Cardiology Event Note Stress test completed and found to be abnormal. There is a mild to moderate inferior/inferior lateral ischemia. SDS 4. Stress test reviewed with patient and . LHC is recommended for further evaluation. Risks, benefits, adverse events reviewed with patient and . He is agreeable to proceed. Patient with history of remote PCI. He is currently normal sinus rhythm on telemetry and normotensive.
[2018-06-24] MEDS ORDERED: Verapamil 5 MG/2 ML VIAL ONE (15:08)
[2018-06-24] MEDS ORDERED: Heparin 1,000 UNITS/500 mL 500 ML ONE (15:09)
[2018-06-24] MEDS ORDERED: *HR* Heparin 10,000 UNIT/10 ML VIAL ONE (15:09)
[2018-06-24] MEDS ORDERED: 0.9 % Sodium Chloride 1,000 ML ONE ×2 (15:09→15:36)
[2018-06-24] MEDS ORDERED: Nitroglycerin 1,000 MCG/10 ML VIAL IV ONE (15:09)
[2018-06-24] MEDS ORDERED: ISOVUE-370 200 ML INFUS..BTL ONE ×2 (15:09→16:17)
[2018-06-24] MEDS ORDERED: *HR* FentaNYL (PF) 100 MCG/2 ML VIAL ONE (15:36)
[2018-06-24] MEDS ORDERED: *HR* Midazolam HCl 5 MG/5 ML VIAL IVP ONE (15:36)
[2018-06-24] MEDS ORDERED: Tirofiban 12.5 MG/250ML 12.5 MG/250 ML BAG ONE (16:09)
--- NOTE | 2018-06-24 16:43 | Invasive Diagnostic Lab Proc ---
Name: Keny Hansen Date of Study: 06/24/2018 Date: 1955 Ht: 72.8in Medical Record#: [id number] Age: 63 Wt: 238.10lb Gender: Male BSA: 2.31 Order #: [id number] BMI: 31.56 Physicians Procedure Physician: Gordy Low MD, [facility] Referring MD: Referring MD: Staff Name Position Time In Margarette Dubose RN Monitor 03:48 PM Mirella Wellington RN [facility] Supervisor 03:48 PM Bernadette Conroy RT (R) Scrub 03:48 PM Litzy Luz RT (R) Monitor 03:55 PM Indications Indication Unstable Angina Procedures Performed Procedure L HRT ARTERY/VENTRICLE ANGIO PRQ CARD CHIQUITA STENT W/ANGIO 1 VSL Pre-Procedure Checklist Informed consent is complete signed and on chart. H&P is on chart. ID band is on and ID verified with patient. Patient NPO for procedure The procedure was described for the patient and questions were answered. Blood Pressure: 157/90 ECG is on chart. Rhythm: NSR Plan of Care Patient will tolerate the procedure without complications. Adequate level of comfort will be maintained. Hemodynamics will remain stable Patient will recover from procedure without complications. Respiratory function will be maintained. Cardiac rhythm will remain stable. Patient temperature will be maintained. Patient and/or family have verbalized understanding of the procedure. Patient Education Intravenous Access Time IV Size Location DC'd Fluid/Drip Rate Units RN Central Line Lt Arm 0.9NaCl 25 ml/hr Mirella Wellington RN Allergies NO KNOWN ALLERGIES topiramate Vital Signs Time BP (mmHg) HR (bpm) O2 Sat. RR (bpm) LOC 03:48 PM / % 5 = Fully awake and oriented or at pre-proc level 03:42 PM 107 / 85 91 91 % 30 03:48 PM 157 / 90 87 93 % 23 03:52 PM 146 / 93 88 92 % 21 03:57 PM 150 / 81 89 83 % 22 04:02 PM 155 / 91 86 90 % 18 04:07 PM 136 / 83 85 90 % 20 04:12 PM 137 / 84 84 92 % 20 04:18 PM 129 / 93 85 94 % 19 04:22 PM 144 / 76 82 92 % 18 04:27 PM 134 / 80 84 93 % 21 Procedural Medications Time Medication Dose Units Method Given By 03:48 PM Oxygen 2 L/min nasal cannula Mirella Wellington RN 03:50 PM Versed 3 mg Intravenous Mirella Wellington RN 03:50 PM Fentanyl 75 mcg Intravenous Mirella Wellington RN 03:59 PM Versed 2 mg Intravenous Mirlela Wellington RN 03:59 PM Fentanyl 25 mcg Intravenous Mirella Wellington RN 04:00 PM Lidocaine 2% 0.5 ml Subcutaneous Gordy Low MD, FACC 04:02 PM Heparin 2000 units Nitroglycerin 200 mcg Verapamil 2.5 mg Intraarterial Gordy Low MD, FACC 04:06 PM Oxygen 4 L/min nasal cannula Mirella Wellington RN 04:11 PM Aggrastat Bolus: 54 ml Intravenous Mirella Wellington RN 04:11 PM Aggrastat 12.5mg/250ml 19.5 ml Intravenous Mirella Wellington RN 04:12 PM Heparin 2000 units Intravenous Mirella Wellington RN 04:25 PM Nitroglycerin 200 mcg Intracoronary Gordy Low MD ASA Classification: CLASS II- Mild systemic disease (i.e. well-controlled diabetes, hypertension, asthma, cigarette smoking) Alphonse Score Preprocedure Postprocedure Activity Activity Circulation Circulation Consciousness Consciousness O2 Saturation O2 Saturation Respiratory Respiratory Total Score Total Score Contrast Agent: Isovue Diagnostic Contrast: 132 ml Total Contrast: 132 ml Fluoro Dose: 56 mGy Activated Clotting Time Time Seconds to Clot 04:13 PM 207 Procedure Log Time Note Enter By 03:41 PM CathStat 03:41 PM Vitals capture started with the following parameters, Patient=Adult, Interval=5 min, Initial Qfaxxwkk=554 mmHg, Deflation Rate=3 mmHg, Cuff placed on Right Arm 03:42 PM HR=91 bpm, YZYJ=142/85 mmhg, SpO2=91.0 %, Resp=30 B/min, Temp=34 deg C, Comment=nsr 03:47 PM Pt arrived to agriculture laborer 2 at 15:47 scoates 03:47 PM Physician arrived 15:47 scoates 03:48 PM ASA Class CLASS II- Mild systemic disease (i.e. well-controlled diabetes, hypertension, asthma, cigarette smoking) scoates 03:48 PM Meet and greet completed scoates 03:48 PM Sign in performed according to hospital policy. Informed consent was obtained. scoates 03:48 PM Procedure start 15:48 scoates 03:48 PM Time: 15:48 Patient comfortable and pain free: Yes scoates 03:48 PM Time: 15:48LOC: 5 = Fully awake and oriented or at pre-proc level scoates 03:48 PM HR=87 bpm, NMCH=371/90 mmhg, SpO2=93 %, Resp=23 B/min 03:48 PM Time: 15:48 Oxygen on at 2 L/min per nasal cannula by Mirella Wellington RN scoates 03:48 PM Patient charges- Angio tray pack, Navilyst 3mm J, Pulse Oximetry and ACIST tubing and transducer scoates 03:48 PM Mirella Wellington RN Position: [employer] [facility] Supervisor Time in: 15:48 scoates 03:48 PM Bernadette Conroy (R) Position: Scrub Time in: 15:48 scoates 03:48 PM Case Delayed no, inpatient scoates 03:49 PM Clinical Presentation: Unstable angina scoates 03:50 PM Time: 15:50 Versed 3 mg Intravenous Given by Mirella Wellington RN scoates 03:50 PM Time: 15:50 Fentanyl 75 mcg Intravenous Given by Mirella Wellington RN scoates 03:52 PM HR=88 bpm, IYBD=990/93 mmhg, SpO2=92.0 %, Resp=21 B/min, EtCO2=34 mmHg 03:55 PM Litzy Luz RT (R) Position: Monitor Time in: 15:55 tsites 03:56 PM Hair removed from procedure site in holding area using clippers. Bilateral groin and right wrist prepped with Chloraprep by Bernadette Conroy (R), then patient was draped. Skin intact. tsites 03:57 PM Pressure channel 1 zeroed. 03:57 PM HR=89 bpm, UWHN=143/81 mmhg, SpO2=83.0 %, Resp=22 B/min, EtCO2=33 mmHg 03:59 PM Time: 15:59 Versed 2 mg Intravenous Given by Mirella Wellington RN tsites 03:59 PM Time: 15:59 Fentanyl 25 mcg Intravenous Given by Mirella Wellington RN tsites 04:00 PM Time out was performed according to hospital policy. Conscious sedation and anesthesia was achieved (see medication log with in this report above) tsites 04:00 PM Time: 16:00 0.5 ml Lidocaine 2% to right radial Subcutaneous Given by Gordy Low MD, [facility] tsites 04:01 PM Access obtained by percutaneous puncture. 6Fr 10cm Terumo Glidesheath sheath placed in right Radial artery. [id number] tsites 04:02 PM Time: 16:02 Patient given 2,000 units Heparin, 200 mcg Nitroglycerin, and 2.5 mg Verapamil Intraarterial by Gordy Low MD, [facility]. This is given to reduce risk of vessel spasm and thrombosis. tsites 04:02 PM 5Fr TIG catheter inserted over the wire [facility] tsites 04:02 PM 0.035 260cm Navilyst 3mmJ wire [id number] tsites 04:02 PM HR=86 bpm, DDOQ=491/91 mmhg, SpO2=90.0 %, Resp=18 B/min, EtCO2=30 mmHg 04:04 PM Pressure channel 1 zeroed. 04:04 PM Recorded Pressure: LV, HR=88, Condition=Condition 1 (Left Ventricle) LV 135/8/15 04:04 PM Catheter crossed the aortic valve and was selectively placed in the left ventricle. Pressures recorded on pullback for left heart catheterization. tsites 04:04 PM Bolus angiogram of left Ventricle complete: 10 ml/sec for a total of 30 mls tsites 04:04 PM Recorded Pressure: LV, Ao, HR=91, Condition=Condition 1 (Left Ventricle) LV 133/7/21, (Aorta) Ao 114/73/96 04:05 PM LCA angiography performed in multiple views. tsites 04:05 PM Recorded Pressure: Ao, HR=85, Condition=Condition 1 (Aorta) Ao 131/105/116 04:05 PM Lesion found in Mid Circumflex. Pre Stenosis: 85 Pre JULIET Flow: tsites 04:06 PM Lesion found in Mid LAD. Pre Stenosis: 30 Pre JULIET Flow: tsites 04:06 PM Lesion found in Distal LAD. Pre Stenosis: 30 Pre JULIET Flow: tsites 04:06 PM Mid/Distal Left Anterior Descending Coronary Artery and diagonal branches with 30% stenosis. If graft is supplying this area, 0 % stenosis tsites 04:06 PM Circumflex, Obtuse Marginal, Left Posterior Descending, and Left Posterolateral Coronary Arteries with 85 % stenosis. If graft is supplying this area, 0 % stenosis tsites 04:06 PM Time: 16:06 Oxygen on at 4 L/min per nasal cannula by Mirella Wellington RN tsites 04:06 PM RCA angiography performed in multiple views. tsites 04:07 PM Lesion found in Mid RCA. Pre Stenosis: 40 Pre JULIET Flow: tsites 04:07 PM Lesion found in Distal RCA. Pre Stenosis: 60 Pre JULIET Flow: tsites 04:07 PM HR=85 bpm, SYTI=628/83 mmhg, SpO2=90.0 %, Resp=20 B/min, EtCO2=35 mmHg 04:08 PM wire reinserted catheter removed tsites 04:08 PM Coronary Dominance: right tsites 04:09 PM PCI Status Elective tsites 04:09 PM 6Fr CLS 3.0 Runway guide catheter was used to cannulate the PCI vessel successfully. reused? No tsites 04:09 PM Inflation device was opened. tsites 04:10 PM .014 [place] 182cm guide wire across target lesion- successful. reused? No tsites 04:11 PM Time: 16:11 Aggrastat Bolus: 54 ml Intravenous Given by Mirella Wellington RN Shaffer pump tsites 04:12 PM Time: 16:11 Aggrastat 12.5mg/250ml 19.5 ml Intravenous Given by Mirella Wellington RN Shaffer pump tsites 04:12 PM Time: 16:12 Heparin 2000 units Intravenous Given by Mirella Wellington RN tsites 04:12 PM HR=84 bpm, PDGV=155/84 mmhg, SpO2=92.0 %, Resp=20 B/min, EtCO2=35 mmHg 04:13 PM 2.5 mm x 20 mm Mozec Rx balloon across target lesion- successful. reused? No tsites 04:13 PM Balloon inflated @ 16 chen for 18 seconds tsites 04:13 PM At 16:13 the ACT was 207 seconds. tsites 04:14 PM Balloon inflated @ 16 chen for 18 seconds tsites 04:15 PM Balloon catheter removed intact. tsites 04:17 PM 3.5mm x 20mm Cordis EluNIR drug-eluting stent across target lesion- successful Lot #[id number] tsites 04:18 PM Stent deployed @ 12 chen for 15 seconds tsites 04:18 PM Recorded Pressure: Ao, HR=86, Condition=Condition 1 (Aorta) Ao 125/96/110 04:18 PM HR=85 bpm, KWTA=348/93 mmhg, SpO2=94 %, Resp=19 B/min 04:19 PM Stent delivery system removed intact. tsites 04:22 PM 3.5mm x 24mm Cordis EluNIR drug-eluting stent across target lesion- successful Lot #[id number] tsites 04:22 PM HR=82 bpm, IIKU=191/76 mmhg, SpO2=92 %, Resp=18 B/min 04:23 PM Stent deployed @ 14 chen for 16 seconds tsites 04:23 PM Stent balloon reinflated @ 14 chen for 16 seconds tsites 04:25 PM Time: 16:25 Nitroglycerin 200 mcg Intracoronary Given by Gordy Low MD tsites 04:27 PM HR=84 bpm, VEQO=953/80 mmhg, SpO2=93 %, Resp=21 B/min 04:29 PM Procedure completed at 16:08 06/24/2018 tsites 04:29 PM Did you address JULIET flow and Dominance? Yes tsites 04:29 PM Sign out completed: Radiation Dose 904 mGy, 55.6 mGy/cm2 Fluoro Time: 6.2 Isovue 370 - 200ml contrast 132 ml given by Gordy Low MD, FACC. Complications: None. The patient was discharged out of the laboratory monitor in stable condition. Cardiac Rehab Consult needed: YesConfirmed administered medications: Yes tsites 04:29 PM Isovue 370 - 200ml,2 Bottle(s) used. tsites 04:29 PM Arterial sheath pulled, Vasc Band closure device used and was Successful S/N. tsites 04:29 PM 10 ml air in Vasc Band. tsites 04:29 PM Estimated Blood Loss: less than 20cc tsites 04:30 PM Post ECG NSR tsites 04:30 PM Post Blood Pressure 134/80 tsites 04:30 PM 16:30 Post Pulses Rt Radial 1+ tsites 04:30 PM Information taught Cardiac Cath, PCI, and Vasc Band tsites 04:31 PM Education needs Procedure, Plan of Care, and Responsibilities of Patient in Care tsites 04:31 PM Learning barriers :None tsites 04:31 PM Education Methods Verbal tsites 04:31 PM Education evaluation Able to repeat information tsites 04:31 PM Site status No bleeding/hematoma - Rt Wrist as reported by Bernadette Conroy RT (R) at 16:31 tsites 04:31 PM Report given to harley MENDOZA Pt taken to 2NE Room #30. 16:31 tsites 04:32 PM Plavix, Effient or Brilinta given Yes tsites 04:32 PM Delay to floor No tsites 04:32 PM Patient out of room: 16:32 tsites 04:32 PM Family placed in consult room. tsites Complications Complication None Hemodynamics Pressures Site Systolic/A Wave Diastolic/V Wave Mean LV 135 8 15 LV 133 7 21 AO 114 73 96 AO 131 105 116 AO 125 96 110 Post Procedure Information Blood Pressure: 134/80 mmHg Rhythm: NSR Post procedural instructions were given Closure Device Time Device Success/Fail 06/24/2018 4:25:00 PM Mechanical Compression Site Checks Time Location Status Staff Sheath In? Note 04:31 PM Rt Wrist No bleeding/hematoma Bernadette Conroy RT (R) Pulses Time Site Pre-Procedure Post-Procedure Note Bilateral DP & PT 1+ Rt Radial 2+ 4:30:00 PM Rt Radial 1+ Updated by Litzy Luz RT (R) on 06/24/2018 4:35:21 PM Litzy Luz RT electronically signed on 06/24/2018 4:35:46 PM with status of Final
[2018-06-24] MEDS ORDERED: Tirofiban 12.5 MG/250ML 12.5 MG/250 ML BAG IVC SCH (16:45)
[2018-06-24] MEDS ORDERED: *HR* Heparin 5,000 UNIT/ML VIAL IVP ONE (20:11)
[2018-06-24] MEDS ORDERED: *HR* Heparin 5,000 UNIT/ML VIAL IVP PRN ×2 (20:11)
[2018-06-24] MEDS ORDERED: Heparin 25,000 UNIT/500 ML D5W 25,000 UNIT/500 ML BAG IVC SCH (20:15)
[2018-06-25 06:17] LABS: Hematocrit 40.9 % (37.5-50.1); Hemoglobin 14.2 g/dL (12.9-16.9)
[2018-06-25 06:30] LABS: BUN/Creatinine Ratio 12 (6-26); Blood Urea Nitrogen 12 mg/dL (8-23); eGFR For Non-African Americans > 60 (> 60)
[2018-06-25] MEDS: Aspirin Enteric Coated 81 MG Tablet PO SCH (08:59)
[2018-06-25] MEDS: Diltiazem CD (24hr) 120 MG CAPSULE PO SCH (08:59)
[2018-06-25] MEDS: Doxycycline 100 MG CAPSULE PO SCH (09:00)
[2018-06-25] MEDS: Budesonide/Formoterol 160/4.5 1 PUFF INH IH SCH (10:07)
--- NOTE | 2018-06-25 10:09 | Cardiology Progress Note ---
<Salty Mehta - Last Filed: 06/25/18 11:50> Date of Encounter: 06/25/18 Time of Encounter: 08:50 Assessment and Plan (1) Atrial flutter with rapid ventricular response Current Visit: Yes Status: Acute -Episode of asymptomatic A flutter-RVR with HR in 160's that did not respond to adenosine x2 but returned to baseline NSR after diltiazem infusion -HR and BP stable now on PO diltiazem and metoprolol. Diltiazem infusion stopped. -Most recent HR 77, BP 133/93 -ECHO 06/23/18 EF 50%, mild concentric LV hypertrophy, normal LV diastolic fun ction, normal RV structure and function -[id number] 2 and recommend terminal make up operator anticoagulation with DOAC -Chemical stress 06/24/18 abnormal with mild to mod inferior/inferior-lateral ischemia, sds 4 -LHC 06/24/18 following abnormal stress with 2 drug-elluting stents placed in circumflex artery found to be 85% stenosis -Will need duel antiplatelet therapy continued following stent placement and r eccommend stopping ASA after first outpatient cardiology appt. -Continue 50mg metoprolol BID and 120mg diltiazem CD at discharge for rate control along with apixaban for anticoagulation -Cardiology followup in 2 weeks. -Will sign off. Please reconsult if cardiology needed. Discussion w patient/family: The assessment and plan as outlined above was discussed with the patient and/or family members who expressed understanding and agreement. All questions were answered. Thank you for involving us in the care of your patient. Please call with any questions. Subjective Principal diagnosis: CAD Interval history: No acute events overnight. Said he feels much better since lhc and stent placement yst. Thinks he feels better than he has in a long time. Denies any chest pain, dyspnea, blurry vision, diplopia, dizziness/lightheadedness, pain at R radial cath site or bleeding/hematoma. Objective Vital Signs, Last 4 Hours Temp Pulse Resp BP Pulse Ox 06/25/18 07:13 96.8 F L 77 16 133/93 95 General: Conversant, No Apparent Distress HEENT: Atraumatic, Normocephaly, Mucus Membranes Moist Neck: No JVD Cardiac: Reg Rate and Rhythm, Normal S1 and S2 Lungs: Normal Breath Sounds, No Wheeze, Rales, Rhonchi Neuro: Alert and responsive Skin: Other (no bleeding, hematoma at R radial cath site ) Musculoskeletal: No Chest Wall Tenderness Extremities: No Clubbing, No Cyanosis, No Edema, Normal Pulses Results 06/25/18 05:40 06/25/18 05:40 Lab Results 06/25/18 06/25/18 05:40 05:40 Hgb 14.2 Hct 40.9 Plt Count 173 BUN 12 Creatinine 1.04 Consult Discharge Plan - Plan Referrals: Markus Angeles MD [Primary Care Provider] - 07/02/18 9:45 am Prescriptions: Apixaban [Eliquis] 5 mg PO BID #60 tablet RX: Aspirin [Adult Aspirin] 81 mg PO DAILY #30 tablet.dr RX: Atorvastatin [Lipitor] 40 mg PO HS #30 tablet RX: Clopidogrel [Plavix] 75 mg PO DAILY #30 tablet RX: Diltiazem CD (24hr) [Cardizem CD] 120 mg PO DAILY #30 cap.er.24h RX: Doxycycline 100 mg PO BID 1 Days #2 capsule RX: Metoprolol [Lopressor] 50 mg PO BID 30 Days #60 tablet Pantoprazole Sodium [Protonix] 20 mg PO DAILY #30 tab <Jamie Pierce - Last Filed: 06/25/18 15:36> Date of Encounter: 06/25/18 Assessment and Plan (1) CAD (coronary artery disease) Current Visit: Yes Status: Acute I examined this patient and my medical decision-making was reviewed with the Resident Physician. I agree with the documented findings, disposition and treatment plan as described except to the extent set forth below. S/P PCI of severe ISR of the CIRC. PAF titrate cardiazem as tolerated and triple therapy to be strated and ASA stopped at first cardiology OP follow up. Qualifiers: Coronary Disease-Associated Artery/Lesion type: pam[place]key artery [place] vs. transplanted heart: pamunkey heart Associated angina: without angina Qualified Code(s): I25.10 - Atherosclerotic heart disease of pam[place]key coronary artery without angina pectoris Discussion w patient/family: The assessment and plan as outlined above was discussed with the patient and/or family members who expressed understanding and agreement. All questions were answered. Thank you for involving us in the care of your patient. Please call with any questions. Results 06/25/18 05:40 06/25/18 05:40 Lab Results 06/25/18 06/25/18 05:40 05:40 Hgb 14.2 Hct 40.9 Plt Count 173 BUN 12 Creatinine 1.04
[2018-06-25 11:13] VITALS: BP 130/94
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
== END 2018-06-25 16:20 | disposition home or self-care (01) ==
LOC: EMEROOARM 09:22 → 2NENU 09:22 → SUATTDRO 12:39 → 2NENU 13:50
PROVIDERS: ADMIT Internal Medicine; ATTEND Internal Medicine